=== PATIENT | female | born 1980 | race Caucasian/White ===

== ENCOUNTER 2017-01-01 20:13 | Emergency (ER) | payer OTHER ==
[~2017-01-01] VITALS: Ht 157.5 cm; Wt 68.2 kg
[2017-01-01 20:19] VITALS: BP 115/74; PULSE 88; RESP 16; O2SAT 99
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
[2017-01-01] MEDS ORDERED: HYDROmorphone 1 mg/mL Inj IM ONE (20:35)
[2017-01-01] MEDS ORDERED: Ondansetron 8 mg ODT Tablet PO ONE (20:35)
[2017-01-01] MEDS ORDERED: _oxyCODONE/APAP 5-325 mg Tablet PO PRN (21:00)
[2017-01-01] MEDS ORDERED: OXYC1TAB24 PO (21:03)
[2017-01-01 22:12] VITALS: BP 143/83; PULSE 108; RESP 18; O2SAT 93
== END 2017-01-01 22:13 | disposition home or self-care (01) ==
LOC: SED 20:13
DX: M54.12 Radiculopathy, cervical region (principal); Z88.0 Allergy status to penicillin
CPT/HCPCS: 96372; 99283; J1170

== ENCOUNTER 2017-02-12 13:17 | Emergency (ER) | payer OTHER ==
[~2017-02-12] VITALS: Ht 157.5 cm; Wt 63.6 kg
[~2017-02-12 13:17] MED LIST: OXYC1TAB24 PO
[2017-02-12 13:19] VITALS: BP 118/77; PULSE 92; RESP 12; O2SAT 100
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
== END 2017-02-12 16:21 | disposition left against medical advice (07) ==
LOC: SED 13:17
DX: Z76.0 Encounter for issue of repeat prescription (principal); M54.2 Cervicalgia; Z87.891 Personal history of nicotine dependence; Z88.0 Allergy status to penicillin